=== PATIENT | female | born 1960 | race Caucasian/White ===

== ENCOUNTER 2016-11-13 01:19 | Emergency (ER) | payer BC ==
--- NOTE | 2016-11-13 19:47 | ER ---
ADMIT: 11/13/2016 RM/LOC: ER [facility] MR#: [id number] [facility] [place], [place] [id number] [address] [place], [place] [id number] Emergency Room Report SEX: F AGE: 56 : 1960 DATE: 11/13/2016 The patient is a 56-year-old female visiting family, got up to use the restroom, and had near syncopal episode. responded promptly and found the patient hyperventilating, conscious with carpopedal spasms. The patient denied any chest pain or shortness of breath. Does admit to hitting her head. Previous episode of possible seizure while in bed according to at that time certainly sounded postictal, today was immediately conscious, but anxious. Exam remarkable for nontoxic, afebrile female with no delirium. CT head and neck negative. EKG showed sinus rhythm without ST-T or Q-wave change. Chest x-ray is negative. Normal CBC, CMP, troponin, negative alcohol and D-dimer, lactic 2.8, CRP less than 0.29. Suspect the patient had vasovagal syncope. Recommended outpatient Holter and EEG for further evaluation. Follow up with Dr. Contreras this week. Ceasar Osorio MD/ soyl JOB #: [id number] CC: Ceasar Osorio MD, Attending Physician Pernell Contreras MD, Family Physician Pernell Contreras MD
== END 2016-11-13 04:02 | disposition home or self-care (01) ==
LOC: ER 01:19
DX: R55 Syncope and collapse (principal); E03.9 Hypothyroidism, unspecified; M81.0 Age-related osteoporosis without current pathological fracture; Z79.899 Other long term (current) drug therapy